=== PATIENT | male | born 1960 | race Two or more races ===

== ENCOUNTER 2019-08-15 18:36 | Observation (INO) | payer OTHER ==
[~2019-08-15] VITALS: Ht 182.9 cm; Wt 81.2 kg
[2019-08-15 22:03] LABS: BASOPHIL % 0.5 % (0-2); PLATELET COUNT 224 x10^3mcL (130-400); RED CELL DISTRIBUTION WIDTH 13.8 % (11.5-14.5)
[2019-08-15 22:38] LABS: ALBUMIN 3.9 g/dL (3.4-5.0); CARBON DIOXIDE 26.9 mmol/L (21-32); CHLORIDE SERUM 100 mmol/L (98-107); GFR1 > 60 mL/min; GLUCOSE SERUM 161 mg/dL (74-106); POTASSIUM SERUM 4.1 mmol/L (3.5-5.1); SODIUM SERUM 137 mmol/L (136-145); TOTAL PROTEIN, SERUM 8.2 g/dL (6.4-8.2)
[2019-08-15 22:39] LABS: ALKALINE PHOSPHATASE 115 U/L (46-116); ALT/SGPT 21 U/L (16-63); AST/SGOT 12 U/L (15-37); BILIRUBIN TOTAL 0.74 mg/dL (0.20-1.00); CALCIUM 9.2 mg/dL (8.5-10.1); LIPASE 224 IU/L (73-393)
[2019-08-16 00:57] VITALS: BP 156/71
[2019-08-16 05:35] VITALS: BP 130/71
[2019-08-16 07:22] LABS: BASOPHIL % 0.3 % (0-2); PLATELET COUNT 197 x10^3mcL (130-400); RED CELL DISTRIBUTION WIDTH 14.1 % (11.5-14.5)
[2019-08-16 08:17] LABS: CARBON DIOXIDE 27.9 mmol/L (21-32); CHLORIDE SERUM 102 mmol/L (98-107); CREATININE SERUM 0.9 mg/dL (0.7-1.3); GFR1 > 60 mL/min; GLUCOSE SERUM 127 mg/dL (74-106); MAGNESIUM 2.2 mg/dL (1.8-2.4); SODIUM SERUM 139 mmol/L (136-145)
[2019-08-16 08:41] VITALS: BP 140/66
[2019-08-16 12:15] VITALS: BP 126/66
[2019-08-16 14:17] VITALS: BP 126/66
== END 2019-08-16 15:52 | disposition home or self-care (01) ==
LOC: ED 18:36 → MU 23:32
PROVIDERS: Emergency Medicine; Internal Medicine; ADMIT Internal Medicine Pulmonary Disease
DX: R51 Headache (principal); E11.9 Type 2 diabetes mellitus without complications; Z23 Encounter for immunization
CPT/HCPCS: 82962; 90732; G0378; J0561; J1170; J1885; J2270; J2405; J3010; J7030